=== PATIENT | male | born 1980 | race Two or more races ===

== ENCOUNTER 2018-12-11 00:54 | Emergency (ER) | payer SELFPAY ==
[2018-12-11] MEDS ORDERED: ONDANSETRON 4 MG/2 ML VIAL IVP ONE (01:00)
[2018-12-11] MEDS ORDERED: NS 1,000 ML IV ONE ×2 (01:00)
[2018-12-11] MEDS ORDERED: FAMOTIDINE 20 MG/2 ML SDV IVP ONE (01:01)
--- NOTE | 2018-12-11 01:03 | EDPHY ---
H & P Time Seen by Provider: 12/11/18 01:01 HPI/ROS: HPI CHIEF COMPLAINT: Vomiting/Diarrhea from Fast [employer]. HISTORY OF PRESENT ILLNESS: Patient is a 38-year-old male, presents to the emergency room by ambulance for vomiting. Patient states that he is homeless, he goes from [place] to [place] very often, works typically in fast food. He states 4 days ago he had [employer], this made him sick feeling nauseous and abdominal cramping. He vomited multiple times. Also had watery diarrhea. He ate [employer] earlier today and then felt worse with ongoing nausea vomited 4 times today. Mainly is food and clear secretions. However at the end of vomiting he thinks he saw blood in his vomit. Denies fever, denies chest pain, denies shortness of breath. Denies significant abdominal pain. Past Medical History: Denies significant medical history Past Surgical History: Denies significant surgical history Social History: Tobacco, marijuana. Denies alcohol. Homeless. Family History: Noncontributory ROS REVIEW OF SYSTEMS: 10 Systems were reviewed and negative with the exception of the elements mentioned in the history of present illness. Exam Constitutional appears well nontoxic no acute distress, triage nursing summary reviewed, vital signs reviewed, awake/alert. Eyes normal conjunctivae and sclera, EOMI, PERRLA. HENT normal inspection, atraumatic, moist mucus membranes, no epistaxis, neck supple/ no meningismus, no raccoon eyes. Respiratory clear to auscultation bilaterally, normal breath sounds, no respiratory distress, no wheezing. Cardiovascular rate normal, regular rhythm, no murmur, no edema, distal pulses normal. Gastrointestinal soft, non-tender, no rebound, no guarding, normal bowel sounds, no distension, no pulsatile mass. Genitourinary no CVA tenderness. Musculoskeletal no midline vertebral tenderness, full range of motion, no calf swelling, no tenderness of extremities, no meningismus, good pulses, neurovascularly intact. Skin pink, warm, & dry, no rash, skin atraumatic. Neurologic awake, alert and oriented x 3, AAOx3, moves all 4 extremities equally, motor intact, sensory intact, CN II-XII intact, normal cerebellar, normal vision, normal speech. Psychiatric normal mood/affect. Heme/Lymph/Immune no lymphadenopathy. Differential Diagnosis: Differential diagnosis includes but is not limited to and in no particular order: Acute nausea vomiting, dehydration, gastritis, Bowel obstruction, appendicitis, gallbladder disease, diverticulitis, colitis, enteritis, perforated viscus, gastritis, GERD, esophagitis, urinary tract infection, pyelonephritis, kidney stones Medical Decision Making: Plan for this patient IV establishment IV fluid bolus , IV Zofran for nausea, IV Pepcid for GI upset, basic labs and re-evaluate. Re-evaluation: 0331: Patient re-evaluated this time he is resting comfortably and sleeping. Abdomen is soft nontender on exam. Labs reviewed are unremarkable. Urine drug screen is positive for cocaine. Patient admits to doing cocaine yesterday. He denies any chest pain or shortness of breath. Vital signs are stable and sleeping. Will p.o. Challenge shortly. [id number]: Patient has been sleeping here for mulitple hours. He has been in the ER resting for 5+ hours. NAD. VSS. He has not had any vomiting here or diarrhea. Abdomen is soft nt. He was able to Drink fluids without difficulty and was able to keep these down. Given he is not vomiting, and doing well, I feel comfortable with him getting discharged. I counseled him on Cocaine use. I also explained he could be having n/v/d from food borne illness vs. Upset stomach from doing cocaine. Abd soft, non tender, we did not perform any ct imaging as abdomen is soft nt. Po challenge well. Source: Patient, EMS Constitutional: Initial Vital Signs Temperature (C) 37.0 C 12/11/18 00:58 Heart Rate 79 12/11/18 00:58 Respiratory Rate 18 12/11/18 00:58 Blood Pressure 120/79 12/11/18 00:58 O2 Sat (%) 98 12/11/18 00:58 O2 Delivery Mode Room Air Allergies/Adverse Reactions: No Known Allergies Allergy (Unverified 12/11/18 01:09) Home Medications: Medication Instructions Recorded Ranitidine HCl [Zantac] 150 mg PO DAILY #14 tablet 12/11/18 Medical Decision Making - Data Points Laboratory Results: Laboratory Results 12/11/18 01:04 12/11/18 01:04 12/11/18 12/11/18 12/11/18 02:41 01:04 01:04 WBC RBC Hgb Hct MCV MCH MCHC RDW Plt Count MPV Neut % (Auto) Lymph % (Auto) Ocean % (Auto) Eos % (Auto) Baso % (Auto) Nucleat RBC Rel Count Absolute Neuts (auto) Absolute Lymphs (auto) Absolute Monos (auto) Absolute Eos (auto) Absolute Basos (auto) Absolute Nucleated RBC Immature Gran % Immature Gran # Sodium 140 mEq/L mEq/L (135-145) Potassium 4.0 mEq/L mEq/L (3.5-5.2) Chloride 105 mEq/L mEq/L (97-110) Carbon Dioxide 27 mEq/l mEq/l (22-31) Anion Gap 8 mEq/L mEq/L (6-14) BUN 22 mg/dL mg/dL (7-23) Creatinine 0.9 mg/dL mg/dL (0.7-1.3) Estimated GFR > 60 Glucose 86 mg/dL mg/dL (70-100) Calcium 9.2 mg/dL mg/dL (8.5-10.4) Total Bilirubin 0.4 mg/dL mg/dL (0.1-1.4) Conjugated Bilirubin 0.1 mg/dL mg/dL (0.0-0.5) Unconjugated Bilirubin 0.3 mg/dL mg/dL (0.0-1.1) AST 28 IU/L IU/L (17-59) ALT 34 IU/L IU/L (21-72) Alkaline Phosphatase 86 IU/L IU/L (38-126) Troponin I < 0.012 ng/mL ng/mL (0.000-0.034) Total Protein 6.5 g/dL g/dL (6.3-8.2) Albumin 3.8 g/dL g/dL (3.5-5.0) Lipase 178 IU/L IU/L (23-300) Urine Color YELLOW Urine Appearance CLEAR Urine pH 5.0 (5.0-7.5) Ur Specific [place] 1.030 (1.002-1.030) Urine Protein NEGATIVE (NEGATIVE) Urine Ketones NEGATIVE (NEGATIVE) Urine Blood NEGATIVE (NEGATIVE) Urine Nitrate NEGATIVE (NEGATIVE) Urine Bilirubin NEGATIVE (NEGATIVE) Urine Urobilinogen 2.0 EU H EU (0.2-1.0) Ur Leukocyte Esterase NEGATIVE (NEGATIVE) Urine Glucose NEGATIVE (NEGATIVE) Urine Opiates Screen NEGATIVE (NEGATIVE) Urine Barbiturates NEGATIVE (NEGATIVE) Ur Phencyclidine Scrn NEGATIVE (NEGATIVE) Ur Amphetamine Screen NEGATIVE (NEGATIVE) U Benzodiazepines Scrn NEGATIVE (NEGATIVE) Urine Cocaine Screen NON-NEGATIVE H (NEGATIVE) U Marijuana (THC) Screen NEGATIVE (NEGATIVE) Ethyl Alcohol < 10 mg/dL mg/dL (0-10) 12/11/18 01:04 WBC 7.57 10^3/uL 10^3/uL (3.80-9.50) RBC 5.23 10^6/uL 10^6/uL (4.40-6.38) Hgb 14.8 g/dL g/dL (13.7-17.5) Hct 44.2 % % (40.0-51.0) MCV 84.5 fL fL (81.5-99.8) MCH 28.3 pg pg (27.9-34.1) MCHC 33.5 g/dL g/dL (32.4-36.7) RDW 13.4 % % (11.5-15.2) Plt Count 366 10^3/uL 10^3/uL (150-400) MPV 8.9 fL fL (8.7-11.7) Neut % (Auto) 65.7 % % (39.3-74.2) Lymph % (Auto) 22.5 % % (15.0-45.0) Ocean % (Auto) 6.9 % % (4.5-13.0) Eos % (Auto) 4.4 % % (0.6-7.6) Baso % (Auto) 0.4 % % (0.3-1.7) Nucleat RBC Rel Count 0.0 % % (0.0-0.2) Absolute Neuts (auto) 4.98 10^3/uL 10^3/uL (1.70-6.50) Absolute Lymphs (auto) 1.70 10^3/uL 10^3/uL (1.00-3.00) Absolute Monos (auto) 0.52 10^3/uL 10^3/uL (0.30-0.80) Absolute Eos (auto) 0.33 10^3/uL 10^3/uL (0.03-0.40) Absolute Basos (auto) 0.03 10^3/uL 10^3/uL (0.02-0.10) Absolute Nucleated RBC 0.00 10^3/uL 10^3/uL (0-0.01) Immature Gran % 0.1 % % (0.0-1.1) Immature Gran # 0.01 10^3/uL 10^3/uL (0.00-0.10) Sodium Potassium Chloride Carbon Dioxide Anion Gap BUN Creatinine Estimated GFR Glucose Calcium Total Bilirubin Conjugated Bilirubin Unconjugated Bilirubin AST ALT Alkaline Phosphatase Troponin I Total Protein Albumin Lipase Urine Color Urine Appearance Urine pH Ur Specific [place] Urine Protein Urine Ketones Urine Blood Urine Nitrate Urine Bilirubin Urine Urobilinogen Ur Leukocyte Esterase Urine Glucose Urine Opiates Screen Urine Barbiturates Ur Phencyclidine Scrn Ur Amphetamine Screen U Benzodiazepines Scrn Urine Cocaine Screen U Marijuana (THC) Screen Ethyl Alcohol Medications Given: Discontinued Medications Famotidine (Pepcid) 20 mg IVP EDNOW ONE Stop: 12/11/18 01:02 Last Admin: 12/11/18 01:14 Dose: 20 mg Sodium Chloride (Ns) 1,000 mls @ 0 mls/hr IV EDNOW ONE; Wide Open PRN Reason: Protocol Stop: 12/11/18 01:01 Last Admin: 12/11/18 01:14 Dose: 1,000 mls Sodium Chloride (Ns) 1,000 mls @ 0 mls/hr IV EDNOW ONE; Wide Open PRN Reason: Protocol Stop: 12/11/18 01:01 Last Admin: 12/11/18 01:14 Dose: 1,000 mls Ondansetron HCl (Zofran) 4 mg IVP EDNOW ONE Stop: 12/11/18 01:01 Last Admin: 12/11/18 01:14 Dose: 4 mg Departure - Departure Disposition: Home, Routine, Self-Care Clinical Impression: Cocaine abuse Vomiting Qualifiers: Vomiting type: unspecified Vomiting Intractability: non-intractable Nausea presence: with nausea Qualified Code(s): R11.2 - Nausea with vomiting, unspecified Condition: Good Instructions: Cocaine Abuse (ED), Acute Nausea and Vomiting (ED) Additional Instructions: 1. [place] diet no spicy fatty greasy foods. 2. Return to the emergency room if worsening abdominal pain, fever, vomiting. Referrals: Patient,NotPresent [Unknown] - As per Instructions [facility],. [Clinic] - As per Instructions Prescriptions: Ranitidine HCl [Zantac] 150 mg PO DAILY #14 tablet
[2018-12-11 01:14] LABS: PLATELET COUNT 366 10^3/uL (150-400)
[2018-12-11 05:51] VITALS: BP 104/63
== END 2018-12-11 05:56 | disposition home or self-care (01) ==
DX: F14.10 Cocaine abuse, uncomplicated (principal); R11.2 Nausea with vomiting, unspecified; E86.9 Volume depletion, unspecified
CPT/HCPCS: 80305; 96374; G0480; J2405